=== PATIENT | male | born 1985 | race Caucasian/White ===

== ENCOUNTER 2017-02-22 11:28 | Emergency (ER) | payer SELFPAY ==
[~2017-02-22] VITALS: Ht 180.3 cm; Wt 65.0 kg
[2017-02-22] MEDS ORDERED: BACTRIM DS1 TAB PO (12:09)
[2017-02-22] MEDS ORDERED: MOTRIN800 MG PO (12:09)
[2017-02-22 12:15] VITALS: BP 131/78
== END 2017-02-22 12:15 | disposition home or self-care (01) | DRG 603 ==
LOC: ED 11:28
PROC: 0H9EXZZ Drainage of Left Lower Arm Skin, External Approach (ICD-10-PCS; principal; 2017-02-22)
DX: L02.414 Cutaneous abscess of left upper limb (principal)

== ENCOUNTER 2017-02-24 15:38 | Emergency (ER) | payer SELFPAY ==
[~2017-02-24] VITALS: Ht 180.3 cm; Wt 65.9 kg
[~2017-02-24 15:38] MED LIST: BACTRIM DS1 TAB PO; MOTRIN800 MG PO
[2017-02-24 17:14] LABS: HEMATOCRIT 45.5 % (39.0-50.0); HEMOGLOBIN 15.4 g/dl (14.0-18.0); IMMATURE GRANULOCYTES 0.3 % (0.0-1.0); MEAN CELL VOLUME 88.5 fL CALC (80.0-100.0); MEAN CORPUSCULAR HGB CONC 33.8 g/L CALC (32.0-36.0); NEUT# 3.93 thou/uL (1.82-7.42); RED BLOOD COUNT 5.14 mill/uL (4.70-6.10); RED CELL DISTRI WIDTH 12.3 % (11.5-15.5)
[2017-02-24 17:24] LABS: ALBUMIN 4.4 g/dL (3.2-5.0); ALKALINE PHOSPHATASE 80 u/l (38-126); ANION GAP 16 (6-22 (CALC)); BILIRUBIN, TOTAL 0.3 mg/dL (0.0-1.4); BUN 11 mg/dL (9-20); BUN/CREATININE RATIO 12 (12-20 (CALC)); CALCIUM 9.8 mg/dL (8.4-10.2); CARBON DIOXIDE 28 mmol/l (22-30); CHLORIDE 101 mmol/l (95-108); CREATININE 0.9 mg/dL (0.7-1.3); GFR > 60 ML/MIN (>=60 (CALC)); GFR FOR AFR.AMER. > 60 ML/MIN (>=60 (CALC)); GLUCOSE 95 mg/dL (75-110); POTASSIUM 4.8 mmol/l (3.5-5.1); SGOT/AST 24 u/l (17-59); SGPT/ALT 29 u/l (21-72); SODIUM 140 mmol/l (137-146); TOTAL PROTEIN 8.2 g/dL (6.3-8.2)
[2017-02-24] MEDS ORDERED: CLINDAMYCIN300 M1 PO (18:03)
[2017-02-24 19:44] VITALS: BP 130/75
== END 2017-02-24 19:58 | disposition home or self-care (01) | DRG 603 ==
LOC: ED 15:38
PROVIDERS: Emergency Medicine
DX: L02.414 Cutaneous abscess of left upper limb (principal); F17.210 Nicotine dependence, cigarettes, uncomplicated; L03.114 Cellulitis of left upper limb; F90.9 Attention-deficit hyperactivity disorder, unspecified type; F43.10 Post-traumatic stress disorder, unspecified